=== PATIENT | male | born 1965 | race Caucasian/White ===

== ENCOUNTER 2018-05-20 19:32 | Inpatient (IN) | END 2018-05-23 18:45 | disposition home or self-care (01) | DRG 191 ==

== ENCOUNTER 2018-06-07 18:12 | Emergency (ER) | END 2018-06-08 01:59 | disposition home or self-care (01) ==

== ENCOUNTER 2018-06-08 02:58 | Emergency (ER) | END 2018-06-08 11:21 | disposition home or self-care (01) ==

== ENCOUNTER 2018-11-29 11:58 | Inpatient (IN) | payer OTHER ==
[~2018-11-29] VITALS: Ht 177.8 cm; Wt 97.7 kg
[~2018-11-29 11:58] MED LIST: ALBU18HF INH; ATEN50TA PO; BUDE6.9H INHALATION; FLUT12HF2 IH; FLUT1AER4 INH; IBUP-1542 PO; IPRA4AER INHALATION; PRED50 PO; TIOT18CA INHALATION; UMEC62.5 IH
[2018-11-29 13:40] VITALS: PULSE 97
[2018-11-29 14:03] VITALS: Ht 177.8 cm; Wt 97.7 kg
[2018-11-29 14:19] VITALS: BP 134/86; PULSE 97; RESP 18
[2018-11-29] MEDS ORDERED: ONDANSETRON 4 MG INJ IV PRN (14:30)
[2018-11-29] MEDS ORDERED: FUROSEMIDE 40 MG INJ IV ONE (14:30)
[2018-11-29] MEDS ORDERED: ALBUTEROL 0.083% (NEB) 2.5 MG/3 ML AMP HHN PRN (14:30)
[2018-11-29] MEDS ORDERED: DOCUSATE SODIUM 100 MG CAP PO PRN (14:30)
[2018-11-29] MEDS ORDERED: ACETAMINOPHEN 325 MG TAB PO PRN (14:30)
[2018-11-29] MEDS ORDERED: MAGNESIUM HYDROXIDE 30ML CUP PO PRN (14:30)
[2018-11-29] MEDS ORDERED: NACL 0.9% 3 ML SYG IV SCH (14:30)
--- NOTE | 2018-11-29 14:38 | HP ---
Date/Time of Note Date/Time of Note DATE: 11/29/18 TIME: 14:30 Assessment/Plan VTE Prophylaxis SCD applied (from Nsg): Yes Pharmacological prophylaxis: LMWH Assessment/Plan Assessment/Plan 1. Acute on chronic diastolic heart failure - ECHO results noted - discussed with patient need to abstain from alcohol use - Will increase Lasix to BID and monitor I/O and daily weights - BNP mildly elevated in 500s from OSH - most likely secondary to noncompliance given has not taken Lasix in 1 week 2. COPD - stable. no exacerbation appreciated - continue home bronchodilators 3. HTN - Continue home atenolol dose and will adjust as needed 4. etoh abuse - counseled on cessation - Ativan PRN 5. obesity - lifestyle modification counseling offered 6. homeless - SW consulted for resources 7. Diet - Cardiac 8. Disposition - Admit to telemetry for treatment of acute diastolic heart failure. When SOB resolves and euvolemic, will d/c home. Will most likely need medications delivered prior to d/c to avoid readmission for medication noncompliance. HPI/ROS Admit Date/Time Admit Date/Time November 29, 2018 at 13:17 Hx of Present Illness 53 yo M with PMH COPD, CHF, HTN, alcohol abuse, and obesity presented to [facility] secondary to worsening shortness of breath and facial swelling for the past 2 days. Patient was discharged from [facility] 1 week ago after being admitted for similar symptoms. He was discharged and was supposed to slat pickler his medications. He was staying at a sober living facility but after his did not show up the next morning with his medications, he left and went to stay with a friend. Patient states he usually is compliant with his m edications but was a miscommunication situation with his . At OSH, patient was noted with elevated BNP and given a dose of Lasix with improvement. Patients CXR was negative for pulmonary edema or effusions. Patient admits to dizziness but denies any chest pain, shortness of breath, wheezing, fevers, chills, abdominal pain, or urinary issues. He does admit to urinating about 2200 ml after given Lasix. ROS All 12 systems reviewed and pertinent positives as per HPI. All others negative. Constitutional: No chills, No fatigue, No nausea Eyes: No discharge ENT: No congestion Respiratory: cough, shortness of breath, sputum; No wheezing Cardiovascular: edema; No chest pain, No lightheadedness, No palpitations Gastrointestinal: No pain, No constipation, No diarrhea, No nausea, No vomiting Genitourinary: No no complaints Musculoskeletal: No back pain Skin: No bruising, No laceration, No rash Neurologic: No confusion, No focal-weakness, No syncope Endocrine: no complaints Lymphatic: no complaints Psychological: nl mood/affect Immunologic: no complaints PMH/Family/Social Past Medical History Medical History: congestive heart failure, hypertension, other (COPD, alcohol abuse, obesity) Medications Current Medications Atenolol (Tenormin) 50 mg BID PO ; Start 11/29/18 at 21:00 Tiotropium [place] (Spiriva) 1 inh DAILY INH ; Start 11/30/18 at 09:00 Fluticasone/ Vilanterol (Breo Ellipta 200-25 Mcg Inh) 1 inh DAILY INH ; Start 11/30/18 at 09:00 Albuterol (Proventil 0.083% (Neb)) 2.5 mg Q2H RESP THERAPY PRN HHN SHORTNESS OF BREATH; Start 11/29/18 at 14:30 Albuterol (Proventil 0.083% (Neb)) 2.5 mg Q6HWA RESP THERAPY HHN ; Start 11/29/18 at 20:00 IV Flush (NS 3 ml) 3 ml PER PROTOCOL IV ; Start 11/29/18 at 14:30 Ondansetron HCl (Zofran Inj) 4 mg Q6H PRN IV NAUSEA/VOMITING; Start 11/29/18 at 14:30 Furosemide (Lasix) 40 mg ONCE ONCE IV ; Start 11/29/18 at 14:30; Stop 11/29/18 at 14:31 Acetaminophen (Tylenol Tab) 650 mg Q6H PRN PO .PAIN 1-3 OR TEMP; Start 11/29/18 at 14:30 Docusate Sodium (Colace) 100 mg Q12H PRN PO .CONSTIPATION; Start 11/29/18 at 14:30 Magnesium Hydroxide (Milk Of Mag) 30 ml DAILY PRN PO .CONSTIPATION; Start 11/29/18 at 14:30 Famotidine (Pepcid) 20 mg Q12 PO ; Start 11/29/18 at 21:00 Enoxaparin Sodium (Lovenox) 40 mg DAILY SC ; Start 11/30/18 at 09:00 Coded Allergies: No Known Allergy (Verified , 05/20/18) Past Surgical History Past Surgical Hx: no surgical history Family History Significant Family History: no pertinent family hx Social History Alcohol Use: occasionally Smoking Status: Former smoker Drug Use: none Exam/Review of Systems Vital Signs Vitals Vital Signs Date Temp Pulse Resp B/P (MAP) Pulse Ox O2 O2 Flow FiO2 Time Delivery Rate 11/29/18 97.3 97 18 134/86 99 14:19 (102) Exam Exam General: Patient is laying in bed and answers questions appropriately. no acute distress Mentation: Patient is alert and oriented 4, Head: Normocephalic atraumatic Eyes: EOMI, pupils reactive to light Neck: Supple, +JVD Respiratory: Clear to auscultation bilaterally, diminished, no wheezing or rhonchi Cardiovascular: regular rate and rhythm, no obvious murmurs Gastrointestinal: soft, nontender to palpation, nondistended, bowel sounds heard. Ext: Moves all extremities spontaneously, lower extremity swelling with +trace edema Skin: venous stasis changes bilaterally JESSICA JULIAN MD November 29, 2018 14:38
[2018-11-29] MEDS ORDERED: LORAZEPAM 2 MG INJ IV PRN (15:00)
[2018-11-29 15:45] VITALS: BP 136/86; PULSE 98; RESP 20
[2018-11-29 16:00] VITALS: PULSE 108
--- NOTE | 2018-11-29 17:00 | RADRPT ---
Echocardiogram Report Patient Name: DALIA LOWPatient ID: [id number] : 1965 (53y 11m)Study Date: 11/29/2018 2:35:48 PM Gender: MAccession #: [id number] Tech: Buddy Minaagawa [facility] [[email or web address]] Location: 514-A Ref.Physician: JESSICA JULIAN Height(Cm): BSA: Weight(Kg): Quality: AdequateAccount #: Procedures: Echocardiographic Report: Transthoracic echocardiogram with complete 2D, M-Mode, and doppler examination. Indications: Evaluate Left Ventricular function/ Hx of chf. Measurements: 2D/M Mode Doppler Measurement Value Normal Range Measurement Value Normal Range LVIDd 2D 5.9 [ 4.2 - 5.8 ] cm AV Peak Yovanny 1.6 [ 100.0 - 170.0 ] cm/sec LVIDs 2D 4.3 [ 2.5 - 4.0 ] cm AV Peak PG 10.0 [ 2.0 - 9.0 ] mmHg LVPWd 2D 1.1 [ 0.6 - 1.0 ] cm LVOT Peak Yovanny 0.9 [ 70.0 - 110.0 ] cm/sec IVSd 2D 1.5 [ 0.6 - 1.0 ] cm LVOT Peak PG 3.0 [ 2.0 - 6.0 ] mmHg AoR Diam 2D 3.4 [ 2.6 - 3.4 ] cm MV E Peak Yovanny 1.4 [ 60.0 - 130.0 ] cm/sec EDV 2D 172.0 [ 62.0 - 150.0 ] ml MV A Peak Yovanny 0.4 [ 100.0 - 120.0 ] cm/sec ESV 2D 84.0 [ 21.0 - 61.0 ] ml MV E/A 4.0 [ 0.8 - 1.5 ] ratio EF 2D 51.2 [ 52.0 - 72.0 ] percent MV Decel Time 176 [ 104 - 258 ] msec LA Dimen 2D 5.0 [ 3.0 - 4.0 ] cm Lat E` Yovanny 0.2 [ 10.0 - 15.0 ] cm/sec Lateral E/E` 8.8 [ 1.0 - 2.0 ] ratio MV E/A 4.0 [ 0.8 - 1.5 ] ratio TR Peak Yovanny 2.6 [ 100.0 - 280.0 ] cm/sec TR Peak PG 27.0 mmHg RVSP 37.0 [ 10.0 - 36.0 ] mmHg Findings: Left Ventricle: Normal left ventricular cavity size. Moderate asymmetric septal hypertrophy. Mild global left ventricular systolic dysfunction. Ejection fraction is visually estimated at 45 %. Tissue Doppler/Mitral Doppler indices are consistent with restrictive physiology with markedly elevated left atrial pressure (Stage III-IV diastolic dysfunction). Right Ventricle: Normal right ventricular systolic function. Severe enlargement of right ventricle. Flattened septum in systole and diastole consistent with increased RV pressure and volume overload. Left Atrium: There is moderate enlargement of left atrium. Right Atrium: There is moderate enlargement of right atrium. Mitral Valve: Mild mitral leaflet calcification. Mild mitral annular calcification. Trace mitral regurgitation. Aortic Valve: No hemodynamically significant aortic stenosis by doppler. Aortic cusps appear mildly calcified. Tricuspid Valve: Normal appearance of the tricuspid valve. Estimated peak PA systolic pressure 37 mmHg. There is mild tricuspid regurgitation. Pericardium: Normal pericardium with no significant pericardial effusion. Aorta: Normal aortic root. IVC: Dilated inferior vena cava with poor inspiratory collapse consistent with elevated right atrial pressures. Conclusions: Normal left ventricular cavity size. Moderate asymmetric septal hypertrophy. Mild global left ventricular systolic dysfunction. Ejection fraction is visually estimated at 45 %. Tissue Doppler/Mitral Doppler indices are consistent with restrictive physiology with markedly elevated left atrial pressure (Stage III-IV diastolic dysfunction). There is moderate enlargement of left atrium. There is moderate enlargement of right atrium. Mild mitral leaflet calcification. Mild mitral annular calcification. Trace mitral regurgitation. No hemodynamically significant aortic stenosis by doppler. Aortic cusps appear mildly calcified. Normal appearance of the tricuspid valve. Estimated peak PA systolic pressure 37 mmHg. There is mild tricuspid regurgitation. Dilated inferior vena cava with poor inspiratory collapse consistent with elevated right atrial pressures. Electronically Signed By: John Haro 2018-11-29 16:59:16 PDT
[2018-11-29] MEDS: FUROSEMIDE 20 MG TAB PO SCH (17:09)
[2018-11-29 20:00] VITALS: BP 132/73; PULSE 112; RESP 20
[2018-11-29 20:28] VITALS: PULSE 117
[2018-11-29] MEDS: ATENOLOL 50 MG TAB PO SCH (20:58)
[2018-11-29] MEDS: FAMOTIDINE 20 MG TAB PO SCH (20:58)
[2018-11-29] MEDS: ALBUTEROL 0.083% (NEB) 2.5 MG/3 ML AMP HHN SCH (21:24)
[2018-11-30] VITALS (13 sets, daily range): BP systolic 103–131; BP diastolic 55–69; PULSE 58–94; RESP 18–20
[2018-11-30] MEDS: FUROSEMIDE 20 MG TAB PO SCH ×2 (06:30→17:34)
[2018-11-30] MEDS: ALBUTEROL 0.083% (NEB) 2.5 MG/3 ML AMP HHN SCH ×3 (08:20→21:03)
[2018-11-30] MEDS: ASPIRIN 81 MG TAB PO SCH (09:54)
[2018-11-30] MEDS: FAMOTIDINE 20 MG TAB PO SCH ×2 (09:54→20:50)
[2018-11-30] MEDS: TIOTROPIUM 18 MCG CAPSULE INHA DEV INH SCH (09:54)
[2018-11-30] MEDS: ATENOLOL 50 MG TAB PO SCH ×2 (09:57→20:50)
[2018-11-30] MEDS: ENOXAPARIN 40 MG/0.4 ML SYG SC SCH (10:07)
[2018-11-30] MEDS: FLUTICASONE/VILANTEROL 200-25 INH DEVICE INH SCH (10:10)
--- NOTE | 2018-11-30 10:59 | PN ---
Date/Time of Note Date/Time of Note DATE: 11/30/18 TIME: 10:59 Assessment/Plan VTE Prophylaxis Risk score (from Ns)>0 risk: 4 SCD applied (from Ns): No SCD contraindicated: low risk/ambulating Pharmacological prophylaxis: LMWH Lines/Catheters IV [facility]from [facility] Saline Lock Urinary Cath still in place: No Assessment/Plan Assessment/Plan 1. Acute on chronic diastolic heart failure- improving - changed to PO Lasix today and will monitor output - ECHO results noted and discussed with patient 2. COPD - stable. no exacerbation appreciated - continue home bronchodilators 3. HTN - Continue home atenolol dose and will adjust as needed 4. ETOH abuse - counseled on cessation - Ativan PRN 5. obesity - lifestyle modification counseling offered 6. homeless - SW consulted for resources 7. Disposition - will change to PO Lasix today and monitor I/O. If continues to diurese well, will d/c in am - Requested to speak with SW Result Diagram: 11/30/18 0611 11/30/18 0611 Results 24hrs Laboratory Tests Test 11/30/18 06:11 White Blood Count 6.0 Red Blood Count 3.97 L Hemoglobin 11.8 L Hematocrit 36.5 L Mean Corpuscular Volume 91.9 Mean Corpuscular Hemoglobin 29.7 Mean Corpuscular Hemoglobin Concent 32.3 Red Cell Distribution Width 14.2 Platelet Count 133 L Mean Platelet Volume 11.8 H Immature Granulocytes % 0.200 Neutrophils % 77.4 H Lymphocytes % 10.6 L Monocytes % 11.6 H Eosinophils % 0.0 Basophils % 0.2 Nucleated Red Blood Cells % 0.0 Immature Granulocytes # 0.010 Neutrophils # 4.7 Lymphocytes # 0.6 L Monocytes # 0.7 Eosinophils # 0.0 Basophils # 0.0 Nucleated Red Blood Cells # 0.0 Sodium Level 141 Potassium Level 3.8 Chloride Level 102 Carbon Dioxide Level 34 H Anion Gap 5 Blood Urea Nitrogen 35 H Creatinine 0.88 Est Glomerular Filtrat Rate mL/min > 60 Glucose Level 156 Hemoglobin A1c 5.9 Calcium Level 8.8 Magnesium Level 1.8 Total Bilirubin 0.4 Direct Bilirubin 0.00 Indirect Bilirubin 0.4 Aspartate Amino Transf (AST/SGOT) 26 Alanine Aminotransferase (ALT/SGPT) 26 Alkaline Phosphatase 66 Total Protein 6.9 Albumin 3.3 Globulin 3.60 H Albumin/Globulin Ratio 0.91 Subjective 24 Hr Interval Summary Free Text/Dictation Patient states he's feeling a little better and urinating a great amount. No acute overnight events. Exam/Review of Systems Exam Vitals Vital Signs Date Temp Pulse Resp B/P (MAP) Pulse Ox O2 O2 Flow FiO2 Time Delivery Rate 11/30/18 88 120/69 09:56 (86) 11/30/18 18 98 Nasal 2.0 08:20 Cannula 11/30/18 98.7 07:20 Intake and Output 11/29/18 11/29/18 11/30/18 1414:59 22:59 06:59 IntakeIntake Total 470 ml 100 ml OutputOutput Total 2900 ml 975 ml BalanceBalance -2430 ml -875 ml Exam General: Patient is laying in bed and answers questions appropriately. no acute distress Mentation: Patient is alert and oriented 4, Neck: Supple Respiratory: Clear to auscultation bilaterally, diminished, no wheezing or rhonchi Cardiovascular: regular rate and rhythm, no obvious murmurs Gastrointestinal: soft, nontender to palpation, nondistended, bowel sounds hear d. Ext: Moves all extremities spontaneously, lower extremity swelling with +trace edema Skin: venous stasis changes bilaterally Results Results 24hrs Laboratory Tests Test 11/30/18 06:11 White Blood Count 6.0 Red Blood Count 3.97 L Hemoglobin 11.8 L Hematocrit 36.5 L Mean Corpuscular Volume 91.9 Mean Corpuscular Hemoglobin 29.7 Mean Corpuscular Hemoglobin Concent 32.3 Red Cell Distribution Width 14.2 Platelet Count 133 L Mean Platelet Volume 11.8 H Immature Granulocytes % 0.200 Neutrophils % 77.4 H Lymphocytes % 10.6 L Monocytes % 11.6 H Eosinophils % 0.0 Basophils % 0.2 Nucleated Red Blood Cells % 0.0 Immature Granulocytes # 0.010 Neutrophils # 4.7 Lymphocytes # 0.6 L Monocytes # 0.7 Eosinophils # 0.0 Basophils # 0.0 Nucleated Red Blood Cells # 0.0 Sodium Level 141 Potassium Level 3.8 Chloride Level 102 Carbon Dioxide Level 34 H Anion Gap 5 Blood Urea Nitrogen 35 H Creatinine 0.88 Est Glomerular Filtrat Rate mL/min > 60 Glucose Level 156 Hemoglobin A1c 5.9 Calcium Level 8.8 Magnesium Level 1.8 Total Bilirubin 0.4 Direct Bilirubin 0.00 Indirect Bilirubin 0.4 Aspartate Amino Transf (AST/SGOT) 26 Alanine Aminotransferase (ALT/SGPT) 26 Alkaline Phosphatase 66 Total Protein 6.9 Albumin 3.3 Globulin 3.60 H Albumin/Globulin Ratio 0.91 Medications Medication Current Medications Atenolol (Tenormin) 50 mg BID PO Last administered on 11/30/18 09:57; Admin Dose 50 MG; Start 11/29/18 at 21:00 Tiotropium [place] (Spiriva) 1 inh DAILY INH Last administered on 11/30/18 09:54; Admin Dose 1 INH; Start 11/30/18 at 09:00 Fluticasone/ Vilanterol (Breo Ellipta 200-25 Mcg Inh) 1 inh DAILY INH Last ad ministered on 11/30/18 10:10; Admin Dose 1 INH; Start 11/30/18 at 09:00 Albuterol (Proventil 0.083% (Neb)) 2.5 mg Q2H RESP THERAPY PRN HHN SHORTNESS OF BREATH; Start 11/29/18 at 14:30 Albuterol (Proventil 0.083% (Neb)) 2.5 mg Q6HWA RESP THERAPY HHN Last administered on 11/30/18 08:20; Admin Dose 2.5 MG; Start 11/29/18 at 20:00 IV Flush (NS 3 ml) 3 ml PER PROTOCOL IV ; Start 11/29/18 at 14:30 Ondansetron HCl (Zofran Inj) 4 mg Q6H PRN IV NAUSEA/VOMITING; Start 11/29/18 at 14:30 Acetaminophen (Tylenol Tab) 650 mg Q6H PRN PO .PAIN 1-3 OR TEMP; Start 11/29/18 at 14:30 Docusate Sodium (Colace) 100 mg Q12H PRN PO .CONSTIPATION; Start 11/29/18 at 14:30 Magnesium Hydroxide (Milk Of Mag) 30 ml DAILY PRN PO .CONSTIPATION; Start 11/29/18 at 14:30 Famotidine (Pepcid) 20 mg Q12 PO Last administered on 11/30/18 09:54; Admin Dose 20 MG; Start 11/29/18 at 21:00 Enoxaparin Sodium (Lovenox) 40 mg DAILY SC Last administered on 11/30/18 10:07; Admin Dose 40 MG; Start 11/30/18 at 09:00 Aspirin (Aspirin) 81 mg DAILY PO Last administered on 11/30/18at 09:54; Admin Dose 81 MG; Start 11/30/18 at 09:00 Furosemide (Lasix) 20 mg BID DIURETICS PO Last administered on 11/30/18at 06:30; Admin Dose 20 MG; Start 11/29/18 at 18:00 Lorazepam (Ativan) 1 mg Q2 PRN IV anxiety, withdrawal; Start 11/29/18 at 15:00 JESSICA JULIAN MD November 30, 2018 10:59
[2018-12-01] VITALS (11 sets, daily range): BP systolic 97–112; BP diastolic 52–75; PULSE 62–77; RESP 18–20
[2018-12-01] MEDS: FUROSEMIDE 20 MG TAB PO SCH (06:26)
[2018-12-01] MEDS: ALBUTEROL 0.083% (NEB) 2.5 MG/3 ML AMP HHN SCH ×3 (08:00→19:54)
[2018-12-01] MEDS: FLUTICASONE/VILANTEROL 200-25 INH DEVICE INH SCH ×2 (09:00→14:01)
[2018-12-01] MEDS: TIOTROPIUM 18 MCG CAPSULE INHA DEV INH SCH (09:03)
[2018-12-01] MEDS: ATENOLOL 50 MG TAB PO SCH (09:03)
[2018-12-01] MEDS: FAMOTIDINE 20 MG TAB PO SCH ×2 (09:03→21:16)
[2018-12-01] MEDS: ASPIRIN 81 MG TAB PO SCH (09:03)
[2018-12-01] MEDS: ENOXAPARIN 40 MG/0.4 ML SYG SC SCH (09:09)
--- NOTE | 2018-12-01 13:31 | PN ---
Date/Time of Note Date/Time of Note DATE: 12/01/18 TIME: 13:21 Assessment/Plan VTE Prophylaxis Risk score (from Ns)>0 risk: 2 SCD applied (from Ns): Yes Pharmacological prophylaxis: LMWH Lines/Catheters IV Catheter Type (from Nrs): Saline Lock Urinary Cath still in place: No Assessment/Plan Assessment/Plan 1. CHFZ, systolic LVEF 45% and diastolic, acute on chronic, improving, decrease lasix 2. Acute kidney injury, likely pre-renal, decrease lasix, decrease atenolol 3. HTN, decrease atenolol 4. ETOH abuse, advise to quit 5. COPD, stable 6. obesity, lifestyle modification counseling offered 7. DVT prophylaxis: lovenox Result Diagram: 12/01/18 0645 12/01/18 0644 Results 24hrs Laboratory Tests Test 12/01/18 06:44 12/01/18 06:45 Sodium Level 141 Potassium Level 4.3 Chloride Level 100 Carbon Dioxide Level 34 H Anion Gap 7 Blood Urea Nitrogen 52 H Creatinine 1.41 H Glucose Level 95 # Calcium Level 8.9 Phosphorus Level 4.7 Magnesium Level 1.7 Albumin 3.8 White Blood Count 4.6 #L Red Blood Count 4.27 L Hemoglobin 12.5 L Hematocrit 40.7 L Mean Corpuscular Volume 95.3 Mean Corpuscular Hemoglobin 29.3 Mean Corpuscular Hemoglobin Concent 30.7 L Red Cell Distribution Width 14.5 Platelet Count 171 # Mean Platelet Volume 11.7 H Immature Granulocytes % 0.200 Neutrophils % 50.6 Lymphocytes % 31.5 Monocytes % 14.8 H Eosinophils % 2.0 Basophils % 0.9 Nucleated Red Blood Cells % 0.0 Immature Granulocytes # 0.010 Neutrophils # 2.3 Lymphocytes # 1.5 Monocytes # 0.7 Eosinophils # 0.1 Basophils # 0.0 Nucleated Red Blood Cells # 0.0 Subjective 24 Hr Interval Summary Free Text/Dictation less shortness of breath, no chest pain Exam/Review of Systems Exam Vitals Vital Signs Date Temp Pulse Resp B/P (MAP) Pulse Ox O2 O2 Flow FiO2 Time Delivery Rate 12/01/18 98.3 69 20 99/57 (71) 90 11:15 12/01/18 2.0 07:55 11/30/18 21 21:03 11/30/18 Nasal 08:20 Cannula Intake and Output 11/30/18 11/30/18 12/01/18 1515:00 23:00 07:00 IntakeIntake Total 1620 ml 740 ml OutputOutput Total 1050 ml 400 ml BalanceBalance 570 ml 340 ml Constitutional: alert, oriented, well developed Psych: no complaints, nl mood/affect Head: normocephalic, atraumatic Eyes: nl conjunctiva, EOMI, nl lids ENMT: nl external ears & nose, nl lips & teeth, nl nasal mucosa & septum Neck: supple, non-tender Respiratory: clear to auscultation, normal air movement; No congested cough, No crackles/rales, No diminished breath sounds, No intercostal retraction, No labored breathing, No respirations, No tactile fremitus, No wheezing, No other Cardiovascular: regular rate and rhythm, nl pulses; No bruits, No diastolic murmur, No edema, No gallop, No irregular rhythm, No jugular venous distention (JVD), No murmurs/extra sounds, No rub, No systolic murmur, No S3, No S4, No other Gastrointestinal: soft, nl liver, spleen, non-tender Musculoskeletal: nl extremities to inspection Extremities: edema Neurological: WOUND/OSTOMY CLINICAL NURSE SPECIALIST II-XII intact, nl mental status, nl speech, nl strength Results Results 24hrs Laboratory Tests Test 12/01/18 06:44 12/01/18 06:45 Sodium Level 141 Potassium Level 4.3 Chloride Level 100 Carbon Dioxide Level 34 H Anion Gap 7 Blood Urea Nitrogen 52 H Creatinine 1.41 H Glucose Level 95 # Calcium Level 8.9 Phosphorus Level 4.7 Magnesium Level 1.7 Albumin 3.8 White Blood Count 4.6 #L Red Blood Count 4.27 L Hemoglobin 12.5 L Hematocrit 40.7 L Mean Corpuscular Volume 95.3 Mean Corpuscular Hemoglobin 29.3 Mean Corpuscular Hemoglobin Concent 30.7 L Red Cell Distribution Width 14.5 Platelet Count 171 # Mean Platelet Volume 11.7 H Immature Granulocytes % 0.200 Neutrophils % 50.6 Lymphocytes % 31.5 Monocytes % 14.8 H Eosinophils % 2.0 Basophils % 0.9 Nucleated Red Blood Cells % 0.0 Immature Granulocytes # 0.010 Neutrophils # 2.3 Lymphocytes # 1.5 Monocytes # 0.7 Eosinophils # 0.1 Basophils # 0.0 Nucleated Red Blood Cells # 0.0 Medications Medication Current Medications Atenolol (Tenormin) 50 mg BID PO Last administered on 12/01/18 09:03; Admin Dose 50 MG; Start 11/29/18 at 21:00 Tiotropium [place] (Spiriva) 1 inh DAILY INH Last administered on 12/01/18 09:03; Admin Dose 1 INH; Start 11/30/18 at 09:00 Fluticasone/ Vilanterol (Breo Ellipta 200-25 Mcg Inh) 1 inh DAILY INH Last administered on 11/30/18 10:10; Admin Dose 1 INH; Start 11/30/18 at 09:00 Albuterol (Proventil 0.083% (Neb)) 2.5 mg Q2H RESP THERAPY PRN HHN SHORTNESS OF BREATH; Start 11/29/18 at 14:30 Albuterol (Proventil 0.083% (Neb)) 2.5 mg Q6HWA RESP THERAPY HHN Last administered on 11/30/18 21:03; Admin Dose 2.5 MG; Start 11/29/18 at 20:00 IV Flush (NS 3 ml) 3 ml PER PROTOCOL IV ; Start 11/29/18 at 14:30 Ondansetron HCl (Zofran Inj) 4 mg Q6H PRN IV NAUSEA/VOMITING; Start 11/29/18 at 14:30 Acetaminophen (Tylenol Tab) 650 mg Q6H PRN PO .PAIN 1-3 OR TEMP; Start 11/29/18 at 14:30 Docusate Sodium (Colace) 100 mg Q12H PRN PO .CONSTIPATION; Start 11/29/18 at 14:30 Magnesium Hydroxide (Milk Of Mag) 30 ml DAILY PRN PO .CONSTIPATION; Start 11/29/18 at 14:30 Famotidine (Pepcid) 20 mg Q12 PO Last administered on 12/01/18 09:03; Admin Dose 20 MG; Start 11/29/18 at 21:00 Enoxaparin Sodium (Lovenox) 40 mg DAILY SC Last administered on 12/01/18 09:09; Admin Dose 40 MG; Start 11/30/18 at 09:00 Aspirin (Aspirin) 81 mg DAILY PO Last administered on 12/01/18 09:03; Admin Dose 81 MG; Start 11/30/18 at 09:00 Furosemide (Lasix) 20 mg BID DIURETICS PO Last administered on 12/01/18at 06:26; Admin Dose 20 MG; Start 11/29/18 at 18:00 Lorazepam (Ativan) 1 mg Q2 PRN IV anxiety, withdrawal; Start 11/29/18 at 15:00 SHELTON DUTTA MD December 01, 2018 13:31
[2018-12-02] VITALS (10 sets, daily range): BP systolic 95–115; BP diastolic 56–70; PULSE 61–75; RESP 18–19
[2018-12-02] MEDS: ALBUTEROL 0.083% (NEB) 2.5 MG/3 ML AMP HHN SCH ×3 (08:26→20:19)
[2018-12-02] MEDS: ASPIRIN 81 MG TAB PO SCH (09:50)
[2018-12-02] MEDS: FLUTICASONE/VILANTEROL 200-25 INH DEVICE INH SCH (09:50)
[2018-12-02] MEDS: FUROSEMIDE 20 MG TAB PO SCH (09:50)
[2018-12-02] MEDS: THIAMINE 100 MG TAB PO SCH (09:50)
[2018-12-02] MEDS: ATENOLOL 50 MG TAB PO SCH (09:51)
[2018-12-02] MEDS: TIOTROPIUM 18 MCG CAPSULE INHA DEV INH SCH (09:51)
[2018-12-02] MEDS: FAMOTIDINE 20 MG TAB PO SCH ×2 (09:51→20:48)
[2018-12-02] MEDS: FOLIC ACID 1 MG TAB PO SCH (09:51)
[2018-12-02] MEDS: ENOXAPARIN 40 MG/0.4 ML SYG SC SCH (09:54)
[2018-12-02] MEDS ORDERED: FURO40TA4 PO (13:01)
[2018-12-02] MEDS ORDERED: POTA-57 PO (13:01)
[2018-12-02] MEDS ORDERED: ASPI-831 PO (13:01)
[2018-12-02] MEDS ORDERED: ATEN50TA PO (13:01)
--- NOTE | 2018-12-02 13:09 | DS ---
Date/Time of Note Date/Time of Note DATE: 12/02/18 TIME: 13:03 Discharge Summary Admission/Discharge Info Admit Date/Time November 29, 2018 at 13:17 Discharge Date/Time Discharge Diagnosis 1. CHF, systolic LVEF 45% and diastolic, acute on chronic, improved, follow up with cardiology 2. Acute kidney injury, likely pre-renal, resolved 3. HTN, decrease atenolol 4. ETOH abuse, advise to quit 5. COPD, stable 6. obesity, lifestyle modification counseling offered Patient Condition: Stable Hospital Course 53 yo M with PMH COPD, CHF, HTN, alcohol abuse, and obesity presented to [facility] secondary to worsening shortness of breath and facial swelling for the past 2 days. Patient was discharged from [facility] 1 week ago after being admitted for similar symptoms. 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 He was staying at a sober living facility but after his did not show up the next morning with his medications, he left and went to stay with a friend. Patient states he usually is compliant with his medications but was a miscommunication situation with his . At OSH, patient was noted with elevated BNP and given a dose of Lasix with improvement. Patients CXR was negative for pulmonary edema or effusions. Patient admits to dizziness but denies any chest pain, shortness of breath, wheezing, fevers, chills, abdominal pain, or urinary issues. Echocardiography with LVEF 45%. Patient got iv lasix. Patient has hypotension and BUN/Cr went up to 52/1.41 on 12/01/2018. Atenolol dosage is decreased, lasix dosage is adjusted. Hypotension resolved, BUN/Cr 43/1.1 on 12/02/2018. He will be discharged with lasix 40 mg/day and KCl. He should follow up with cardiology in one week to adjust medication. Home Meds Active Scripts Potassium Chloride* (Klor-Con*) 20 Meq Tabsr, 20 MEQ PO DAILY for 30 Days, TAB.SA Prov:SHELTON DUTTA MD 12/02/18 Furosemide* (Furosemide*) 40 Mg Tablet, 40 MG PO DAILY for 30 Days, TAB Prov:SHELTON DUTTA MD 12/02/18 Aspirin (Aspirin) 81 Mg Chew, 81 MG PO DAILY for 30 Days, TAB Prov:SHELTON DUTTA MD 12/02/18 Atenolol* (Atenolol*) 50 Mg Tablet, 50 MG PO DAILY for 30 Days, TAB Prov:SHELTON DUTTA MD 12/02/18 Ibuprofen* (Motrin*) 600 Mg Tab, 600 MG PO Q6H PRN for PAIN AND OR ELEVATED TEMP, #30 TAB Prov:JESSICA HARP MD 06/07/18 Albuterol/Ipratropium* (Combivent Respimat*) 20-100 Mcg/Inh - 4 Gm Aer.w.adap, 1 PUFF INHALATION QID PRN for SHORTNESS OF BREATH, #3 INHALER 6 Refills Prov:BALDO WINSTON MD 05/23/18 Tiotropium [place]* (Spiriva*) 18 Mcg Cap.w.dev, 1 CAP INHALATION DAILY, #30 CAP 5 Refills Prov:BALDO WINSTON MD 05/23/18 Reported Medications Albuterol Sulfate* (Ventolin HFA*) 18 Gm Hfa.aer.ad, 1 PUFF INH Q4H WHILE AWAKE PRN for SHORTNESS OF BREATH 06/07/18 Salmeterol Xinaf-Fluticasone* (Advair HFA*) 115/21 Aerosol Inhaler, 2 INH IH BID, #1 INHALER 06/07/18 Umeclidinium [place] (Incruse Ellipta) 62.5 Mcg Blst.w.dev, 62.5 MCG IH BID 06/07/18 Discontinued Reported Medications Fluticasone/Salmeterol (Fluticasone-Salmeterol 113-14) 1 Each Aer.pow.ba, 2 PUFFS INH BID 06/07/18 Discontinued Scripts Budesonide-Formoterol Fumarate* (Symbicort*) 80-4.5 Mcg Hfa.aer.ad, 2 PUFF INHALATION BID for 90 Days, #3 BOTTLE 5 Refills Prov:BALDO WINSTON MD 05/23/18 Prednisone (Prednisone) 50 Mg Tab, 50 MG PO DAILY for 4 Days, #4 TAB Prov:BALDO WINSTON MD 05/23/18 Atenolol* (Atenolol*) 50 Mg Tablet, 50 MG PO BID, #60 TAB Prov:BALDO WINSTON MD 05/23/18 Follow-up Plan PCP and cardiology in one week Primary Care Provider Not On Staff Doctor Pending Labs Laboratory Tests Test 12/02/18 06:05 White Blood Count 3.1 10^3/ul (4.8-10.8) Red Blood Count 4.23 10^6/ul (4.70-6.10) Hemoglobin 12.5 g/dl (14.0-18.0) Hematocrit 39.3 % (42.0-52.0) Mean Corpuscular Volume 92.9 fl (82.0-101.0) Mean Corpuscular Hemoglobin 29.6 pg (29.0-33.0) Mean Corpuscular Hemoglobin Concent 31.8 g/dl (32.0-37.0) Red Cell Distribution Width 14.5 % (11.5-14.5) Platelet Count 170 10^3/UL (140-415) Mean Platelet Volume 11.1 fl (7.4-10.4) Immature Granulocytes % 0.000 % (0.001-0.429) Neutrophils % 50.6 % (39.0-77.0) Lymphocytes % 28.7 % (15.0-51.0) Monocytes % 16.8 % (0.0-11.0) Eosinophils % 2.9 % (0.0-7.0) Basophils % 1.0 % (0.0-2.0) Nucleated Red Blood Cells % 0.0 /100WBC (0.0-0.0) Immature Granulocytes # 0.000 10^3/ul (0.0-0.031) Neutrophils # 1.6 10^3/ul (1.6-7.5) Lymphocytes # 0.9 10^3/ul (0.8-2.9) Monocytes # 0.5 10^3/ul (0.3-0.9) Eosinophils # 0.1 10^3/ul (0.0-0.5) Basophils # 0.0 10^3/ul (0.0-0.1) Nucleated Red Blood Cells # 0.0 10^3/ul (0.0-0.0) Sodium Level 142 mmol/L (135-144) Potassium Level 3.9 mmol/L (3.5-5.1) Chloride Level 103 mmol/L (97-110) Carbon Dioxide Level 31 mmol/L (21-31) Anion Gap 8 (5-13) Blood Urea Nitrogen 43 mg/dl (7-20) Creatinine 1.10 mg/dl (0.61-1.24) Glucose Level 144 mg/dl (70-220) Calcium Level 8.9 mg/dl (8.4-10.2) Phosphorus Level 5.1 mg/dl (2.5-4.9) Magnesium Level 1.9 mg/dl (1.7-2.5) Albumin 3.4 g/dl (3.3-4.9) SHELTON DUTTA MD December 02, 2018 13:09
[2018-12-03] VITALS: PULSE 67
[2018-12-03 00:05] VITALS: BP 105/61; PULSE 62; RESP 18
[2018-12-03 04:00] VITALS: PULSE 70
[2018-12-03 04:30] VITALS: BP 114/77; PULSE 64; RESP 18
[2018-12-03 07:32] VITALS: BP 109/67; PULSE 60; RESP 20
[2018-12-03] MEDS: ALBUTEROL 0.083% (NEB) 2.5 MG/3 ML AMP HHN SCH (07:45)
[2018-12-03 08:08] VITALS: PULSE 67
[2018-12-03] MEDS: FAMOTIDINE 20 MG TAB PO SCH (08:09)
[2018-12-03] MEDS: THIAMINE 100 MG TAB PO SCH (08:09)
[2018-12-03] MEDS: FUROSEMIDE 20 MG TAB PO SCH (08:09)
[2018-12-03] MEDS: ASPIRIN 81 MG TAB PO SCH (08:09)
[2018-12-03] MEDS: FOLIC ACID 1 MG TAB PO SCH (08:09)
[2018-12-03] MEDS: ATENOLOL 50 MG TAB PO SCH (08:09)
[2018-12-03] MEDS: ENOXAPARIN 40 MG/0.4 ML SYG SC SCH (08:44)
[2018-12-03] MEDS: FLUTICASONE/VILANTEROL 200-25 INH DEVICE INH SCH (09:00)
[2018-12-03] MEDS: TIOTROPIUM 18 MCG CAPSULE INHA DEV INH SCH (09:00)
--- NOTE | 2018-12-03 12:43 | PDOCDIS ---
Discharge Instructions DIAGNOSIS Discharge Diagnosis 1. CHF, systolic LVEF 45% and diastolic, acute on chronic, improved, follow up with cardiology 2. Acute kidney injury, likely pre-renal, resolved 3. HTN, decrease atenolol 4. ETOH abuse, advise to quit 5. COPD, stable 6. obesity, lifestyle modification counseling offered CONDITION [id number] Patient Condition: [id number] Stable HOME CARE INSTRUCTIONS: [id number] Diet Instructions: [id number] Low Fat /Cholesterol ACTIVITY: [id number] Activity Restrictions: [id number] Slowly Increase Activity Rest between Activity [id number] Bathing Restrictions: Qpero5s TOLERATED FOLLOW UP/APPOINTMENTS Follow-up Plan 1. Follow up with your primary care physician in 1- 2 weeks 2. It is important to take your medications daily as discussed. Take lasix daily and if experiencing increased swelling it is okay to take an extra dose 3. limit your salt intake to 2 grams per day and fluid intake to 1 liter a day 4. It is important to stop drinking alcohol to prevent further damage to your heart and avoid damage to your kidneys and liver 5. If experiencing any concerning symptoms. please go to your closest emergency department JESSICA JULIAN MD December 03, 2018 12:43
--- NOTE | 2018-12-03 12:44 | PN ---
Date/Time of Note Date/Time of Note DATE: 12/03/18 TIME: 12:44 Assessment/Plan VTE [place]axis [place] [facility] [place]: 3 [place]CD [place] [facility] [place] SCD contraindicated: low risk/ambulating Pharmacological prophylaxis: NA/contraindicated Pharm contraindication: low risk/ambulating Lines/Catheters IV [facility]from [facility] Saline Lock Urinary Cath still in place: No Assessment/Plan Assessment/Plan 1. Acute on chronic systolic heart failure - ECHO results noted and discussed with patient need for lifestyle modifica tions, fluid and salt restriction and medication compliance - advice to perform daily weights to determine if retaining excess fluids 2. RENEE - resolved - adjustments made to medications. Most likely from overdiuresis 3. HTN - stable - continue current medications 4. ETOH abuse - cessation advised 5. COPD - nebs PRN 6. Disposition - medically stable for discharge home Result Diagram: 12/03/18 0611 12/03/18 0611 Results 24hrs Laboratory Tests Test 12/03/18 06:11 White Blood Count 2.7 L Red Blood Count 4.10 L Hemoglobin 12.2 L Hematocrit 38.4 L Mean Corpuscular Volume 93.7 Mean Corpuscular Hemoglobin 29.8 Mean Corpuscular Hemoglobin Concent 31.8 L Red Cell Distribution Width 14.5 Platelet Count 168 Mean Platelet Volume 10.9 H Immature Granulocytes % 0.400 Neutrophils % 50.5 Lymphocytes % 27.1 Monocytes % 18.7 H Eosinophils % 2.6 Basophils % 0.7 Nucleated Red Blood Cells % 0.0 Immature Granulocytes # 0.010 Neutrophils # 1.4 L Lymphocytes # 0.7 L Monocytes # 0.5 Eosinophils # 0.1 Basophils # 0.0 Nucleated Red Blood Cells # 0.0 Sodium Level 139 Potassium Level 4.2 Chloride Level 100 Carbon Dioxide Level 35 H Anion Gap 4 L Blood Urea Nitrogen 40 H Creatinine 1.17 Glucose Level 109 Calcium Level 9.0 Phosphorus Level 4.0 Magnesium Level 2.0 Albumin 3.3 Subjective 24 Hr Interval Summary Free Text/Dictation Patient denies any acute issues and had a long discussion with patient and about medication compliance, lifestyle modifications, and alcohol cessation. Exam/Review of Systems Exam Vitals Vital Signs Date Temp Pulse Resp B/P (MAP) Pulse Ox O2 O2 Flow FiO2 Time Delivery Rate 12/03/18 67 08:08 12/03/18 18 98 21 07:46 12/03/18 98.0 109/67 Room Air 07:32 (81) 12/02/18 2.0 20:45 Exam General: Patient is sitting in chair at bedside. no acute distress Neck: Supple Chest: Nontender Lungs: Clear breath sounds bilaterally, no wheezing or rhonchi Heart: Normal S1-S2, Regular rhythm and rate. No murmur, S3, or S4 Abdomen: Soft , nontender, nondistended , bowel sounds are present. No guarding no rebound tenderness Extremities: Normal to inspection, trace edema, no cyanosis. Skin: no rashes or lesions appreciated Results Results 24hrs Laboratory Tests Test 12/03/18 06:11 White Blood Count 2.7 L Red Blood Count 4.10 L Hemoglobin 12.2 L Hematocrit 38.4 L Mean Corpuscular Volume 93.7 Mean Corpuscular Hemoglobin 29.8 Mean Corpuscular Hemoglobin Concent 31.8 L Red Cell Distribution Width 14.5 Platelet Count 168 Mean Platelet Volume 10.9 H Immature Granulocytes % 0.400 Neutrophils % 50.5 Lymphocytes % 27.1 Monocytes % 18.7 H Eosinophils % 2.6 Basophils % 0.7 Nucleated Red Blood Cells % 0.0 Immature Granulocytes # 0.010 Neutrophils # 1.4 L Lymphocytes # 0.7 L Monocytes # 0.5 Eosinophils # 0.1 Basophils # 0.0 Nucleated Red Blood Cells # 0.0 Sodium Level 139 Potassium Level 4.2 Chloride Level 100 Carbon Dioxide Level 35 H Anion Gap 4 L Blood Urea Nitrogen 40 H Creatinine 1.17 Glucose Level 109 Calcium Level 9.0 Phosphorus Level 4.0 Magnesium Level 2.0 Albumin 3.3 Medications Medication Current Medications Tiotropium [place] (Spiriva) 1 inh DAILY INH Last administered on 12/02/18at 09:51; Admin Dose 1 INH; Start 11/30/18 at 09:00 Fluticasone/ Vilanterol (Breo Ellipta 200-25 Mcg Inh) 1 inh DAILY INH Last administered on 12/02/18at 09:50; Admin Dose 1 INH; Start 11/30/18 at 09:00 Albuterol (Proventil 0.083% (Neb)) 2.5 mg Q2H RESP THERAPY PRN HHN SHORTNESS OF BREATH; Start 11/29/18 at 14:30 Albuterol (Proventil 0.083% (Neb)) 2.5 mg Q6HWA RESP THERAPY HHN Last administered on 12/03/18at 07:45; Admin Dose 2.5 MG; Start 11/29/18 at 20:00 IV Flush (NS 3 ml) 3 ml PER PROTOCOL IV ; Start 11/29/18 at 14:30 Ondansetron HCl (Zofran Inj) 4 mg Q6H PRN IV NAUSEA/VOMITING; Start 11/29/18 at 14:30 Acetaminophen (Tylenol Tab) 650 mg Q6H PRN PO .PAIN 1-3 OR TEMP; Start 11/29/18 at 14:30 Docusate Sodium (Colace) 100 mg Q12H PRN PO .CONSTIPATION; Start 11/29/18 at 14:30 Magnesium Hydroxide (Milk Of Mag) 30 ml DAILY PRN PO .CONSTIPATION; Start 11/29/18 at 14:30 Famotidine (Pepcid) 20 mg Q12 PO Last administered on 12/03/18at 08:09; Admin Dose 20 MG; Start 11/29/18 at 21:00 Enoxaparin Sodium (Lovenox) 40 mg DAILY SC Last administered on 12/03/18at 08:44; Admin Dose 40 MG; Start 11/30/18 at 09:00 Aspirin (Aspirin) 81 mg DAILY PO Last administered on 12/03/18 08:09; Admin Dose 81 MG; Start 11/30/18 at 09:00 Lorazepam (Ativan) 1 mg Q2 PRN IV anxiety, withdrawal; Start 11/29/18 at 15:00 Atenolol (Tenormin) 50 mg DAILY PO Last administered on 12/03/18 08:09; Admin Dose 50 MG; Start 12/02/18 at 09:00 Furosemide (Lasix) 20 mg DAILY PO Last administered on 12/03/18 08:09; Admin Dose 20 MG; Start 12/02/18 at 09:00 Thiamine HCl (Vitamin B1) 100 mg DAILY PO Last administered on 12/03/18 08:09; Admin Dose 100 MG; Start 12/02/18 at 09:00 Folic Acid (Folic Acid) 1 mg DAILY PO Last administered on 12/03/18 08:09; Adm in Dose 1 MG; Start 12/02/18 at 09:00 JESSICA JULIAN MD December 03, 2018 12:44
--- NOTE | 2018-12-03 17:55 | DS ---
Date/Time of Note Date/Time of Note DATE: 12/03/18 TIME: 17:52 Discharge Summary Admission/Discharge Info Admit Date/Time November 29, 2018 at 13:17 Discharge Date/Time December 03, 2018 at 12:50 Discharge Diagnosis 1. CHF, systolic LVEF 45% and diastolic, acute on chronic 2. Acute kidney injury, likely pre-renal, resolved 3. HTN 4. ETOH abuse 5. COPD, stable 6. obesity Patient Condition: Stable Hx of Present Illness 53 yo M with PMH COPD, CHF, HTN, alcohol abuse, and obesity presented to [facility] secondary to worsening shortness of breath and facial swelling for the past 2 days. Patient was discharged from [facility] 1 week ago after being admitted for similar symptoms. 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 He was staying at a sober living facility but after his did not show up the next morning with his medications, he left and went to stay with a friend. Patient states he usually is compliant with his medications but was a miscommunication situation with his . At OSH, patient was noted with elevated BNP and given a dose of Lasix with improvement. Patients CXR was negative for pulmonary edema or effusions. Patient admits to dizziness but denies any chest pain, shortness of breath, wheezing, fevers, chills, abdominal pain, or urinary issues. He does admit to urinating about 2200 ml after given Lasix. Hospital Course Patient was admitted for treatment of acute systolic heart failure and given diuretics to help with fluid overload. Patient was responding well to diuretics and adjustments were made and transitioned to PO. Patient was heavily counseled about lifestyle modification and necessary changes to prevent future complications. Patient did develop RENEE but resolved after lasix dosage adjusted. Patient was offered resources by but planned to find housing/fpc with his on his own. Patient presenting symptoms improved significantly and denies any chest pain or shortness of breath. He was weaned off supplemental O2 as well. Patient was discharged in good condition. Home Meds Active Scripts Potassium Chloride* (Klor-Con*) 20 Meq Tabsr, 20 MEQ PO DAILY for 30 Days, TAB.SA Prov:SHELTON DUTTA MD 12/02/18 Furosemide* (Furosemide*) 40 Mg Tablet, 40 MG PO DAILY for 30 Days, TAB Prov:SHELTON DUTTA MD 12/02/18 Aspirin (Aspirin) 81 Mg Chew, 81 MG PO DAILY for 30 Days, TAB Prov:SHELTON DUTTA MD 12/02/18 Atenolol* (Atenolol*) 50 Mg Tablet, 50 MG PO DAILY for 30 Days, TAB Prov:SHELTON DUTTA MD 12/02/18 Ibuprofen* (Motrin*) 600 Mg Tab, 600 MG PO Q6H PRN for PAIN AND OR ELEVATED TEMP, #30 TAB Prov:JESSICA HARP MD 06/07/18 Albuterol/Ipratropium* (Combivent Respimat*) 20-100 Mcg/Inh - 4 Gm Aer.w.adap, 1 PUFF INHALATION QID PRN for SHORTNESS OF BREATH, #3 INHALER 6 Refills Prov:BALDO WINSTON MD 05/23/18 Tiotropium [place]* (Spiriva*) 18 Mcg Cap.w.dev, 1 CAP INHALATION DAILY, #30 CAP 5 Refills Prov:BALDO WINSTON MD 05/23/18 Reported Medications Albuterol Sulfate* (Ventolin HFA*) 18 Gm Hfa.aer.ad, 1 PUFF INH Q4H WHILE AWAKE PRN for SHORTNESS OF BREATH 06/07/18 Salmeterol Xinaf-Fluticasone* (Advair HFA*) 115/21 Aerosol Inhaler, 2 INH IH BID, #1 INHALER 06/07/18 Umeclidinium [place] (Incruse Ellipta) 62.5 Mcg Blst.w.dev, 62.5 MCG IH BID 06/07/18 Discontinued Reported Medications Fluticasone/Salmeterol (Fluticasone-Salmeterol 113-14) 1 Each Aer.pow.ba, 2 PUFFS INH BID 06/07/18 Discontinued Scripts Budesonide-Formoterol Fumarate* (Symbicort*) 80-4.5 Mcg Hfa.aer.ad, 2 PUFF INHALATION BID for 90 Days, #3 BOTTLE 5 Refills Prov:BALDO WINSTON MD 05/23/18 Prednisone (Prednisone) 50 Mg Tab, 50 MG PO DAILY for 4 Days, #4 TAB Prov:BALDO WINSTON MD 05/23/18 Atenolol* (Atenolol*) 50 Mg Tablet, 50 MG PO BID, #60 TAB Prov:BALDO WINSTON MD 05/23/18 Follow-up Plan 1. Follow up with your primary care physician in 1- 2 weeks 2. It is important to take your medications daily as discussed. Take lasix daily and if experiencing increased swelling it is okay to take an extra dose 3. limit your salt intake to 2 grams per day and fluid intake to 1 liter a day 4. It is important to stop drinking alcohol to prevent further damage to your heart and avoid damage to your kidneys and liver 5. If experiencing any concerning symptoms. please go to your closest emergency department Primary Care Provider Not On Staff Doctor Time spent on discharge: > 30 minutes Pending Labs Laboratory Tests Test 12/03/18 06:11 White Blood Count 2.7 10^3/ul (4.8-10.8) Red Blood Count 4.10 10^6/ul (4.70-6.10) Hemoglobin 12.2 g/dl (14.0-18.0) Hematocrit 38.4 % (42.0-52.0) Mean Corpuscular Volume 93.7 fl (82.0-101.0) Mean Corpuscular Hemoglobin 29.8 pg (29.0-33.0) Mean Corpuscular Hemoglobin Concent 31.8 g/dl (32.0-37.0) Red Cell Distribution Width 14.5 % (11.5-14.5) Platelet Count 168 10^3/UL (140-415) Mean Platelet Volume 10.9 fl (7.4-10.4) Immature Granulocytes % 0.400 % (0.001-0.429) Neutrophils % 50.5 % (39.0-77.0) Lymphocytes % 27.1 % (15.0-51.0) Monocytes % 18.7 % (0.0-11.0) Eosinophils % 2.6 % (0.0-7.0) Basophils % 0.7 % (0.0-2.0) Nucleated Red Blood Cells % 0.0 /100WBC (0.0-0.0) Immature Granulocytes # 0.010 10^3/ul (0.0-0.031) Neutrophils # 1.4 10^3/ul (1.6-7.5) Lymphocytes # 0.7 10^3/ul (0.8-2.9) Monocytes # 0.5 10^3/ul (0.3-0.9) Eosinophils # 0.1 10^3/ul (0.0-0.5) Basophils # 0.0 10^3/ul (0.0-0.1) Nucleated Red Blood Cells # 0.0 10^3/ul (0.0-0.0) Sodium Level 139 mmol/L (135-144) Potassium Level 4.2 mmol/L (3.5-5.1) Chloride Level 100 mmol/L (97-110) Carbon Dioxide Level 35 mmol/L (21-31) Anion Gap 4 (5-13) Blood Urea Nitrogen 40 mg/dl (7-20) Creatinine 1.17 mg/dl (0.61-1.24) Glucose Level 109 mg/dl (70-220) Calcium Level 9.0 mg/dl (8.4-10.2) Phosphorus Level 4.0 mg/dl (2.5-4.9) Magnesium Level 2.0 mg/dl (1.7-2.5) Albumin 3.3 g/dl (3.3-4.9) JESSICA JULIAN MD December 03, 2018 17:55
== END 2018-12-03 12:50 | disposition home or self-care (01) | DRG 292 ==
LOC: TEL 13:17
PROVIDERS: ADMIT Internal Medicine; ATTEND Internal Medicine
DX: I11.0 Hypertensive heart disease with heart failure (principal); N17.9 Acute kidney failure, unspecified; I50.43 Acute on chronic combined systolic (congestive) and diastolic (congestive) heart failure; J44.9 Chronic obstructive pulmonary disease, unspecified; F10.10 Alcohol abuse, uncomplicated; E66.9 Obesity, unspecified; Z68.30 Body mass index [BMI] 30.0-30.9, adult; Z59.0 Homelessness
CPT/HCPCS: 80053; 80069; 83036; 83735; 85025; 93306; 94640; 94664; 97110; 97116; 97162; 97165; J1650; J1940

== ENCOUNTER 2019-02-26 22:22 | Emergency (ER) | payer OTHER ==
[~2019-02-26] VITALS: Ht 177.8 cm; Wt 130.5 kg
[~2019-02-26 22:22] MED LIST changes: +ASPI-831 PO; -BUDE6.9H INHALATION; -FLUT1AER4 INH; +FURO-109 PO; +FURO40TA4 PO; +POTA-57 PO; -PRED50 PO
[2019-02-26 22:39] VITALS: Ht 177.8 cm; Wt 130.5 kg
--- NOTE | 2019-02-26 23:18 | ERD ---
ER Documentation Chief Complaint Chief Complaint walk in, stefany leg edema x years(worse lately); hx of chf, copd HPI Patient is a 54-year-old male with CHF, COPD, and hypertension who presents with bilateral leg swelling. He was sent by an urgent care for bilateral lower externally edema. His said he should come as well. He has been having symptoms over the past few weeks and they have been worsening. He is speaking in full sentences but does complain of some mild shortness of breath. He is not taking Lasix like he is supposed to at this time. He does not remember the name of his primary doctor. He has no chest pain. ROS All systems reviewed and are negative except as per history of present illness. Medications Home Meds Active Scripts Furosemide* (Lasix*) 40 Mg Tablet, 40 MG PO DAILY, #30 TAB Prov:JESSICA HARP MD 02/26/19 Potassium Chloride* (Klor-Con*) 20 Meq Tabsr, 20 MEQ PO DAILY for 30 Days, TAB.SA Prov:SHELTON DUTTA MD 12/02/18 Furosemide* (Furosemide*) 40 Mg Tablet, 40 MG PO DAILY for 30 Days, TAB Prov:SHELTON DUTTA MD 12/02/18 Aspirin (Aspirin) 81 Mg Chew, 81 MG PO DAILY for 30 Days, TAB Prov:SHELTON DUTTA MD 12/02/18 Atenolol* (Atenolol*) 50 Mg Tablet, 50 MG PO DAILY for 30 Days, TAB Prov:SHELTON DUTTA MD 12/02/18 Ibuprofen* (Motrin*) 600 Mg Tab, 600 MG PO Q6H PRN for PAIN AND OR ELEVATED TEMP, #30 TAB Prov:JESSICA HARP MD 06/07/18 Albuterol/Ipratropium* (Combivent Respimat*) 20-100 Mcg/Inh - 4 Gm Aer.w.adap, 1 PUFF INHALATION QID PRN for SHORTNESS OF BREATH, #3 INHALER 6 Refills Prov:BALDO WINSTON MD 05/23/18 Tiotropium [place]* (Spiriva*) 18 Mcg Cap.w.dev, 1 CAP INHALATION DAILY, #30 CAP 5 Refills Prov:BALDO WINSTON MD 05/23/18 Reported Medications Albuterol Sulfate* (Ventolin HFA*) 18 Gm Hfa.aer.ad, 1 PUFF INH Q4H WHILE AWAKE PRN for SHORTNESS OF BREATH 06/07/18 Salmeterol Xinaf-Fluticasone* (Advair HFA*) 115/21 Aerosol Inhaler, 2 INH IH BID, #1 INHALER 06/07/18 Umeclidinium [place] (Incruse Ellipta) 62.5 Mcg Blst.w.dev, 62.5 MCG IH BID 06/07/18 Allergies Allergies: Coded Allergies: No Known Allergy (Verified , 05/20/18) PMhx/Soc History of Surgery: No Anesthesia Reaction: No Hx Neurological Disorder: No Hx Respiratory Disorders: Yes (COPD in 2002) Hx Cardiac Disorders: Yes (CHF roughly around 2008) Hx Psychiatric Problems: No Hx Miscellaneous Medical Probl: Yes (COPD, HTN, ETOH abuse, obesity) Hx Alcohol Use: Yes Hx Substance Use: No Hx Tobacco Use: Yes (15 years ago) FmHx Family History: diabetes Physical Exam Vitals Vital Signs Date Temp Pulse Resp B/P (MAP) Pulse Ox O2 O2 Flow FiO2 Time Delivery Rate 02/26/19 97.1 88 20 146/75 97 Room Air 23:49 (98) 02/26/19 97.7 110 20 152/84 94 22:39 (106) Physical Exam Const: No acute distress Head: Atraumatic Eyes: Normal Conjunctiva ENT: Normal External Ears, Nose and Mouth. Neck: Full range of motion. No meningismus. Resp: Clear to auscultation bilaterally Cardio: Regular rate and rhythm, no murmurs Abd: Soft, non tender, non distended. Normal bowel sounds Skin: No petechiae or rashes Back: No midline or flank tenderness Ext: Chronic skin changes of the bilateral lower extremities and 2+ pitting edema bilaterally Neur: Awake and alert Psych: Normal Mood and Affect Results 24 hrs Current Medications Medications Dose Sig/Yarelis Start Time Status Last (Trade) Ordered Route PRN Stop Time Admin Dose Reason Admin Furosemide 40 mg ONCE ONCE 02/26/19 DC 02/26/19 (Lasix) PO 23:30 23:20 02/26/19 23:31 Procedures/MDM EKG read by me: Rate/Rhythm: Sinus tachycardia rate of 107 Intervals: Normal Impression: Tachycardia without ischemia Patient is a 54-year-old male presents with bilateral lower extremity swelling. I believe this is likely related to fluid from CHF and he would benefit from Lasix. I will give him Lasix 40 mg by mouth in the emergency department and a prescription for 40 mg of Lasix daily. However he does need close follow-up with a primary doctor within 1 week for reevaluation. He can return to the ER sooner for any worsening symptoms. At this point I doubt acute coronary syndrome, pneumonia, pneumothorax, pulmonary embolism, or aortic dissection. Departure Diagnosis: Primary Impression: CHF (congestive heart failure) Heart failure type: unspecified Heart failure chronicity: acute Qualified Codes: I50.9 - Heart failure, unspecified Additional Impression: Swelling Condition: Fair Patient Instructions: Peripheral Edema, Bilateral Referrals: [facility] YOU HAVE RECEIVED A MEDICAL SCREENING EXAM AND THE RESULTS INDICATE THAT YOU DO NOT HAVE A CONDITION THAT REQUIRES URGENT TREATMENT IN THE EMERGENCY DEPARTMENT. FURTHER EVALUATION AND TREATMENT OF YOUR CONDITION CAN WAIT UNTIL YOU ARE SEEN IN YOUR DOCTORS OFFICE WITHIN THE NEXT 1-2 DAYS. IT IS YOUR RESPONSIBILITY TO MAKE AN APPOINTMENT FOR FOLOW-UP CARE. IF YOU HAVE A PRIMARY DOCTOR --you should call your primary doctor and schedule an appointment IF YOU DO NOT HAVE A PRIMARY DOCTOR YOU CAN CALL OUR PHYSICIAN REFERRAL HOTLINE AT IF YOU CAN NOT AFFORD TO SEE A PHYSICIAN YOU CAN CHOSE FROM THE FOLLOWING [facility] [address] [facility]. [facility] [address] [facility]. [facility] [address] [facility] [facility] [address] [facility] [facility]. [facility] [address] [facility] [facility]. [address] Additional Instructions: Call your primary care doctor TOMORROW for an appointment during the next 1 WEEK.Tell the workers compensation legal secretary that you were referred from this facility.See the doctor sooner or return here if your condition worsens before your appointment time. JESSICA HARP MD Feb 26, 2019 23:18
[2019-02-26] MEDS ORDERED: FUROSEMIDE 20 MG TAB PO ONE (23:30)
[2019-02-26 23:49] VITALS: BP 146/75; PULSE 88; RESP 20
== END 2019-02-26 23:50 | disposition home or self-care (01) ==
LOC: E/R 22:22
DX: M79.89 Other specified soft tissue disorders (principal); J44.9 Chronic obstructive pulmonary disease, unspecified; I11.0 Hypertensive heart disease with heart failure; I50.9 Heart failure, unspecified; E66.9 Obesity, unspecified; R40.2142 Coma scale, eyes open, spontaneous, at arrival to emergency department; R40.2362 Coma scale, best motor response, obeys commands, at arrival to emergency department; R40.2252 Coma scale, best verbal response, oriented, at arrival to emergency department; Z79.82 Long term (current) use of aspirin; Z87.891 Personal history of nicotine dependence; Z68.41 Body mass index [BMI] 40.0-44.9, adult
CPT/HCPCS: Z7502; Z7610; 93005